=== PATIENT | male | born 1965 | race Caucasian/White ===

== ENCOUNTER 2023-09-15 08:58 | Day surgery (SDC) | payer OTHER ==
[~2023-09-15] VITALS: Ht 170.2 cm; Wt 95.3 kg
[2023-09-15 12:45] VITALS: O2SAT 97
[2023-09-15] MEDS ORDERED: LIDOCAINE MPF 2% 20 MG/1 ML, 5 ML VIAL INH ONE (13:00)
[2023-09-15] MEDS ORDERED: MIDAZOLAM HCL 5 MG/5 ML VIAL ONE (13:08)
[2023-09-15] MEDS ORDERED: fentaNYL CITRATE/PF 100 MCG/2 ML AMP ONE (13:08)
[2023-09-15] MEDS ORDERED: DIPHENHYDRAMINE INJ 50 MG/ML VIAL ONE (13:09)
[2023-09-15] MEDS: MIDAZOLAM HCL 5 MG/5 ML VIAL IVP ONE (13:15)
[2023-09-15 15:09] VITALS: BP_SYST 158; PULSE 79; RESP 14
== END 2023-09-15 14:10 | disposition home or self-care (01) ==
LOC: SDS 08:58 → SMU 09:02 → SDS 14:10
PROVIDERS: ATTEND Internal Medicine
DX: M50.10 Cervical disc disorder with radiculopathy, unspecified cervical region (principal); M50.122 Cervical disc disorder at C5-C6 level with radiculopathy; M79.10 Myalgia, unspecified site; M48.02 Spinal stenosis, cervical region; M51.16 Intervertebral disc disorders with radiculopathy, lumbar region; I10 Essential (primary) hypertension; E78.5 Hyperlipidemia, unspecified; I25.10 Atherosclerotic heart disease of native coronary artery without angina pectoris; Z95.5 Presence of coronary angioplasty implant and graft; Z79.899 Other long term (current) drug therapy
CPT/HCPCS: 62321; J2250; J3010; Q9967; J1010; 76000; J1030; J1200

== ENCOUNTER 2023-12-31 09:26 | Day surgery (SDC) | payer OTHER ==
[~2023-12-31] VITALS: Ht 185.4 cm; Wt 95.3 kg
[2023-12-31] MEDS ORDERED: MEPERIDINE 100 MG INJ. 100 MG/ML VIAL ONE (11:27)
[2023-12-31] MEDS ORDERED: MIDAZOLAM HCL 5 MG/5 ML VIAL ONE ×2 (11:27→12:09)
[2023-12-31 12:40] VITALS: O2SAT 96
[2023-12-31 15:17] VITALS: BP_SYST 121; PULSE 74; RESP 18
== END 2023-12-31 13:30 | disposition home or self-care (01) ==
LOC: SDS 09:26 → SMU 09:28 → SDS 13:30
PROVIDERS: ATTEND Internal Medicine Gastroenterology
DX: K59.00 Constipation, unspecified (principal); K29.50 Unspecified chronic gastritis without bleeding; K63.5 Polyp of colon; R12 Heartburn; K21.9 Gastro-esophageal reflux disease without esophagitis; K57.30 Diverticulosis of large intestine without perforation or abscess without bleeding; K64.8 Other hemorrhoids; K44.9 Diaphragmatic hernia without obstruction or gangrene; I10 Essential (primary) hypertension; E78.5 Hyperlipidemia, unspecified; I25.10 Atherosclerotic heart disease of native coronary artery without angina pectoris; Z79.82 Long term (current) use of aspirin; Z79.899 Other long term (current) drug therapy; Z95.818 Presence of other cardiac implants and grafts; Z87.891 Personal history of nicotine dependence
CPT/HCPCS: 45380; 43239; 88305; 88312; 88313; 99153; 99152; G0378; J2250; J2175